=== PATIENT | male | born 1970 | race Caucasian/White ===

== ENCOUNTER 2021-11-29 15:27 | Inpatient (IN) | payer MEDICAID, MEDICARE ==
[~2021-11-29] VITALS: Ht 172.7 cm; Wt 68.0 kg
[2021-11-29] MEDS ORDERED: SODIUM CHLORIDE 0.9% 1,000 ML IV ONE (15:30)
[2021-11-29] MEDS: DEXT 5%/0.9% NACL 1,000 ML IV SCH ×3 (16:15→20:16)
[2021-11-29 17:41] LABS: BASOPHILS % 0.9 % (0.0-2.0); EOSINOPHILS % 0.4 % (0.0-5.0); HEMATOCRIT. 45.6 % (42.0-52.0); HEMOGLOBIN. 15.7 g/dL (14.0-18.0); LYMPHOCYTES % 10.9 % (20.0-50.0); MEAN CORPUSCULAR HEMOGLOBIN 32.5 pg (28.0-32.0); MEAN CORPUSCULAR VOLUME 94.4 fL (80.0-94.0); MEAN PLATELET VOLUME 9.5 fl (7.4-10.4); MONOCYTES % 8.7 % (2.0-8.0); NEUTROPHILS % 79.1 % (40.0-76.0); PLATELET 210 x1000/uL (130-400); RED BLOOD CELL COUNT 4.83 mill/uL (4.7-6.1); RED CELL DISTRIBUTION WIDTH 13.3 % (11.6-14.6)
[2021-11-29 17:48] LABS: CHLORIDE 104 mEq/L (98-107)
[2021-11-29 17:50] LABS: PARTIAL THROMBOPLASTIN TIME 29.6 sec (23.4-31.0); PROTHROMBIN TIME 10.6 sec (9.6-11.0)
[2021-11-29 17:58] LABS: LDL CHOLESTEROL 100 mg/dL (5-100)
[2021-11-29 17:59] LABS: HDL CHOLESTEROL 53 mg/dL (40-59)
[2021-11-29 18:08] LABS: AMYLASE 37 IU/L (25-115)
[2021-11-29] MEDS ORDERED: ACETAMINOPHEN 325MG TABLET PO PRN (19:15)
[2021-11-29] MEDS ORDERED: IPRATROPIUM/ALBUTEROL 0.5-3(2.5)MG/3ML NEB NEB PRN (19:15)
[2021-11-29] MEDS ORDERED: HYDROCODONE/ACETAMINOPHEN 5/325MG TABLET PO PRN (19:15)
[2021-11-29] MEDS ORDERED: DIPHENHYDRAMINE 50MG/ML VIAL IV PRN (19:15)
[2021-11-29] MEDS ORDERED: NA PHOS,M-B/NA PHOS,DI-BA ENEMA 118ML PR PRN (19:15)
[2021-11-29] MEDS ORDERED: DOCUSATE SODIUM 100MG CAPSULE PO PRN (19:15)
[2021-11-29] MEDS ORDERED: MORPHINE SULFATE 2 MG/ML CPJ (NOT FOR IM USE) IV PRN ×2 (19:15→19:30)
[2021-11-29] MEDS ORDERED: CLONIDINE 0.1MG TABLET PO PRN (19:15)
[2021-11-29] MEDS ORDERED: MAGNESIUM/ALUMINUM HYDROXIDE/SIMETHICONE 30ML UDC PO PRN (19:15)
[2021-11-29] MEDS ORDERED: ACETAMINOPHEN 650MG SUPP PR PRN (19:15)
[2021-11-29] MEDS ORDERED: GUAIFENESIN 200MG/10ML SUGAR FREE UDC PO PRN (19:15)
[2021-11-29] MEDS ORDERED: ONDANSETRON HCL 4MG/2ML INJ IV PRN (19:15)
[2021-11-29] MEDS ORDERED: PIPERACILLIN/TAZOBACTAM 3.375 G in DEXTROSE 5% WATER 50 ML IV SCH (19:15)
[2021-11-29] MEDS ORDERED: LORAZEPAM 2MG/ML CPJ IV PRN (19:30)
[2021-11-29] MEDS: FAMOTIDINE 20MG/2ML VIAL IV SCH (20:06)
[2021-11-29] MEDS: PIPERACILLIN/TAZOBACTAM 3.375G in DEXT 5% WATER 50ML IV SCH (20:07)
[2021-11-30] MEDS: MORPHINE SULFATE 4 MG/ML CPJ (NOT FOR IM USE) IV PRN ×2 (01:26→06:45)
[2021-11-30 02:01] LABS: CLARITY URINE CLEAR (CLEAR); COLOR URINE DK YELLOW (YELLOW); KETONES URINE NEGATIVE (NEGATIVE); LEUKOCYTE ESTERASE URINE NEGATIVE (NEGATIVE); NITRITE URINE NEGATIVE (NEGATIVE); OCCULT BLOOD URINE NEGATIVE (NEGATIVE); PH URINE 5.5 (4.5-8.0); PROTEIN URINE NEGATIVE (NEGATIVE); SPECIFIC GRAVITY URINE 1.024 (1.005-1.030); UROBILINOGEN URINE 0.2 E.U./dL (0.2-1.0)
[2021-11-30 02:10] LABS: *AMPHETAMINES SCREEN URINE NEGATIVE (NEGATIVE); *BARBITURATES SCREEN URINE NEGATIVE (NEGATIVE); *BENZODIAZEPINES SCREEN URINE PRESUMTIVE POSITIVE (NEGATIVE); *COCAINE SCREEN URINE NEGATIVE (NEGATIVE); METHADONE URINE SCREEN NEGATIVE (NEGATIVE); OPIATES URINE SCREEN PRESUMTIVE POSITIVE (NEGATIVE)
[2021-11-30 02:12] LABS: CANNABINOID URINE SCREEN NEGATIVE (NEGATIVE); PHENCYCLIDINE URINE SCREEN NEGATIVE (NEGATIVE)
[2021-11-30 04:16] LABS: BASOPHILS % 1.3 % (0.0-2.0); EOSINOPHILS % 0.8 % (0.0-5.0); HEMATOCRIT. 40.3 % (42.0-52.0); HEMOGLOBIN. 13.9 g/dL (14.0-18.0); LYMPHOCYTES % 23.2 % (20.0-50.0); MEAN CORPUSCULAR HEMOGLOBIN 33.3 pg (28.0-32.0); MEAN CORPUSCULAR VOLUME 96.4 fL (80.0-94.0); MEAN PLATELET VOLUME 9.3 fl (7.4-10.4); MONOCYTES % 10.9 % (2.0-8.0); NEUTROPHILS % 63.8 % (40.0-76.0); PLATELET 148 x1000/uL (130-400); RED BLOOD CELL COUNT 4.18 mill/uL (4.7-6.1); RED CELL DISTRIBUTION WIDTH 13.4 % (11.6-14.6)
[2021-11-30 04:29] LABS: CHLORIDE 106 mEq/L (98-107)
[2021-11-30] MEDS: DEXT 5%/0.9% NACL 1,000 ML IV SCH ×3 (05:15→15:21)
[2021-11-30] MEDS: PIPERACILLIN/TAZOBACTAM 3.375G in DEXT 5% WATER 50ML IV SCH (06:43)
[2021-11-30] MEDS ORDERED: BARIUM SULFATE(VOLUMEN) 450 ML ORAL.SUSP ONE (08:54)
[2021-11-30 10:27] VITALS: BP 127/85
[2021-11-30] MEDS ORDERED: NALOXONE HCL 0.4MG/ML VIAL IV PRN (10:30)
[2021-11-30] MEDS ORDERED: DULO20CA18 PO (10:47)
[2021-11-30] MEDS ORDERED: TRAZ-252 PO (10:47)
[2021-11-30] MEDS ORDERED: CELE200C PO (10:47)
[2021-11-30] MEDS ORDERED: POTASSIUM CHLORIDE INJ 40 MEQ in DEXT 5% WATER 250 ML IV ONE (11:30)
[2021-11-30] MEDS: MORPHINE SULFATE 2 MG/ML CPJ (NOT FOR IM USE) IV PRN ×3 (11:51→21:02)
[2021-11-30 12:22] VITALS: BP 120/75
[2021-11-30] MEDS: KCL 20MEQ/100ML X 2 FOR TOTAL KCL 40MEQ/200ML IV SCH ×2 (13:15→15:00)
[2021-11-30] MEDS ORDERED: IOHEXOL-350 100 ML BOTTLE ONE (13:41)
[2021-11-30] MEDS ORDERED: PIPERACILLIN/TAZOBACTAM 3.375G in DEXT 5% WATER 50ML IV SCH (14:00)
[2021-11-30 16:00] VITALS: BP 117/59
[2021-11-30 20:00] VITALS: BP 132/87
[2021-11-30] MEDS: VANCOMYCIN 1000MG/20ML ORAL SOLN PO SCH (20:05)
[2021-11-30] MEDS: TRAZODONE HCL 50MG TABLET PO SCH (21:01)
[2021-11-30] MEDS: FAMOTIDINE 20MG/2ML VIAL IV SCH (21:01)
[2021-11-30] MEDS: CHOLESTYRAMINE/SUCROSE 4G POWDER PACKET PO SCH (22:19)
[2021-12-01] VITALS: BP 140/88
[2021-12-01] MEDS: VANCOMYCIN 1000MG/20ML ORAL SOLN PO SCH ×4 (00:22→20:20)
[2021-12-01] MEDS: MORPHINE SULFATE 2 MG/ML CPJ (NOT FOR IM USE) IV PRN ×5 (01:47→22:20)
[2021-12-01 04:00] VITALS: BP 135/89
[2021-12-01] MEDS: DEXT 5%/0.9% NACL 1,000 ML IV SCH ×2 (06:11→12:46)
[2021-12-01 08:00] VITALS: BP 119/85
[2021-12-01 08:10] LABS: IMMUNOGLOBULIN A 183 mg/dL (90-386); IMMUNOGLOBULIN G 848 mg/dL (603-1613)
[2021-12-01 08:39] LABS: HEMATOCRIT. 36.8 % (42.0-52.0); HEMOGLOBIN. 12.9 g/dL (14.0-18.0); MEAN CORPUSCULAR HEMOGLOBIN 33.4 pg (28.0-32.0); MEAN CORPUSCULAR VOLUME 95.6 fL (80.0-94.0); MEAN PLATELET VOLUME 9.3 fl (7.4-10.4); PLATELET 147 x1000/uL (130-400); RED BLOOD CELL COUNT 3.85 mill/uL (4.7-6.1); RED CELL DISTRIBUTION WIDTH 13.6 % (11.6-14.6)
[2021-12-01 08:56] LABS: CHLORIDE 109 mEq/L (98-107)
[2021-12-01] MEDS: CHOLESTYRAMINE/SUCROSE 4G POWDER PACKET PO SCH (09:01)
[2021-12-01] MEDS: FAMOTIDINE 20MG/2ML VIAL IV SCH ×2 (09:01→22:19)
[2021-12-01 12:00] VITALS: BP 130/85
[2021-12-01] MEDS ORDERED: VANC250C12 MT (15:18)
[2021-12-01] MEDS ORDERED: FAMO-135 PO (15:18)
[2021-12-01 16:00] VITALS: BP 137/86
[2021-12-01] MEDS: DEXT 5%/0.9% NACL KCL 20MEQ/L 1,000 ML IV SCH ×2 (16:23→22:20)
[2021-12-01 19:47] LABS: PLATELET ESTIMATE NORMAL
[2021-12-01 20:00] VITALS: BP 141/86
[2021-12-01] MEDS: TRAZODONE HCL 50MG TABLET PO SCH (22:19)
[2021-12-02] VITALS: BP 132/79
[2021-12-02] MEDS: MORPHINE SULFATE 2 MG/ML CPJ (NOT FOR IM USE) IV PRN ×4 (03:52→20:43)
[2021-12-02 04:00] VITALS: BP 147/84
[2021-12-02] MEDS: VANCOMYCIN 1000MG/20ML ORAL SOLN PO SCH ×4 (06:05→18:31)
[2021-12-02] MEDS: DEXT 5%/0.9% NACL KCL 20MEQ/L 1,000 ML IV SCH ×3 (06:05→18:31)
[2021-12-02 07:06] LABS: HEMATOCRIT. 38.4 % (42.0-52.0); HEMOGLOBIN. 12.9 g/dL (14.0-18.0); MEAN CORPUSCULAR HEMOGLOBIN 32.5 pg (28.0-32.0); MEAN CORPUSCULAR VOLUME 96.6 fL (80.0-94.0); MEAN PLATELET VOLUME 9.3 fl (7.4-10.4); PLATELET 174 x1000/uL (130-400); RED BLOOD CELL COUNT 3.98 mill/uL (4.7-6.1); RED CELL DISTRIBUTION WIDTH 13.5 % (11.6-14.6)
[2021-12-02 07:16] LABS: CHLORIDE 111 mEq/L (98-107)
[2021-12-02 08:00] VITALS: BP 137/91
[2021-12-02] MEDS: TRAZODONE HCL 50MG TABLET PO SCH (08:44)
[2021-12-02] MEDS: FAMOTIDINE 20MG/2ML VIAL IV SCH ×2 (08:44→20:43)
[2021-12-02 09:12] LABS: PLATELET ESTIMATE NORMAL
[2021-12-02 12:00] VITALS: BP 118/91
[2021-12-02 16:00] VITALS: BP 120/91
[2021-12-02 20:00] VITALS: BP 159/98
[2021-12-02] MEDS: LORAZEPAM 0.5MG TABLET PO PRN (20:43)
[2021-12-02] MEDS: CELECOXIB 100MG CAPSULE PO SCH (20:45)
[2021-12-03] VITALS: BP 128/89
[2021-12-03] MEDS: LORAZEPAM 0.5MG TABLET PO PRN ×2 (00:46→04:57)
[2021-12-03] MEDS: MORPHINE SULFATE 2 MG/ML CPJ (NOT FOR IM USE) IV PRN ×3 (00:46→21:19)
[2021-12-03] MEDS: VANCOMYCIN 1000MG/20ML ORAL SOLN PO SCH ×4 (00:47→17:48)
[2021-12-03] MEDS: DEXT 5%/0.9% NACL KCL 20MEQ/L 1,000 ML IV SCH ×4 (00:47→20:55)
[2021-12-03 04:00] VITALS: BP 137/87
[2021-12-03 08:00] VITALS: BP 133/88
[2021-12-03 08:55] LABS: HEMATOCRIT. 36.4 % (42.0-52.0); HEMOGLOBIN. 12.4 g/dL (14.0-18.0); MEAN CORPUSCULAR HEMOGLOBIN 32.6 pg (28.0-32.0); MEAN CORPUSCULAR VOLUME 95.4 fL (80.0-94.0); MEAN PLATELET VOLUME 9.2 fl (7.4-10.4); PLATELET 178 x1000/uL (130-400); RED BLOOD CELL COUNT 3.81 mill/uL (4.7-6.1); RED CELL DISTRIBUTION WIDTH 13.3 % (11.6-14.6)
[2021-12-03 09:26] LABS: CHLORIDE 113 mEq/L (98-107)
[2021-12-03] MEDS: FAMOTIDINE 20MG/2ML VIAL IV SCH (10:17)
[2021-12-03] MEDS: CELECOXIB 100MG CAPSULE PO SCH ×2 (10:17→17:48)
[2021-12-03 10:51] LABS: PLATELET ESTIMATE NORMAL
[2021-12-03 12:00] VITALS: BP 138/80
[2021-12-03 13:06] LABS: ANTI-MYELOPEROXIDASE AB < 9.0 U/mL (0.0-9.0); ANTI-PROTEINASE 3 ABS < 3.5 U/mL (0.0-3.5)
[2021-12-03] MEDS: DULOXETINE HCL 20MG DR CAPSULE PO SCH (14:30)
[2021-12-03 16:00] VITALS: BP 130/75
[2021-12-03] MEDS ORDERED: BISACODYL 5MG TABLET PO NR ×2 (16:30→20:30)
[2021-12-03] MEDS ORDERED: METOCLOPRAMIDE HCL 10MG/2ML VIAL IV NR ×2 (16:30→20:30)
[2021-12-03] MEDS ORDERED: SORBITOL 70% SOLN 30ML PO NR ×2 (17:00→21:00)
[2021-12-03 20:00] VITALS: BP 137/86
[2021-12-03] MEDS: FAMOTIDINE 20MG TABLET PO SCH (21:03)
[2021-12-03] MEDS: TRAZODONE HCL 50MG TABLET PO SCH (21:06)
[2021-12-04] VITALS: BP 145/87
[2021-12-04] MEDS: VANCOMYCIN 1000MG/20ML ORAL SOLN PO SCH ×4 (00:46→18:00)
[2021-12-04 04:00] VITALS: BP 105/79
[2021-12-04] MEDS: DEXT 5%/0.9% NACL KCL 20MEQ/L 1,000 ML IV SCH ×2 (07:00→21:28)
[2021-12-04 07:19] LABS: BASOPHILS % 1.2 % (0.0-2.0); EOSINOPHILS % 1.6 % (0.0-5.0); HEMATOCRIT. 38.9 % (42.0-52.0); HEMOGLOBIN. 13.9 g/dL (14.0-18.0); LYMPHOCYTES % 35.1 % (20.0-50.0); MEAN CORPUSCULAR HEMOGLOBIN 33.7 pg (28.0-32.0); MEAN CORPUSCULAR VOLUME 94.3 fL (80.0-94.0); MONOCYTES % 14.8 % (2.0-8.0); NEUTROPHILS % 47.3 % (40.0-76.0); PLATELET 204 x1000/uL (130-400); RED BLOOD CELL COUNT 4.13 mill/uL (4.7-6.1); RED CELL DISTRIBUTION WIDTH 13.2 % (11.6-14.6)
[2021-12-04 07:23] LABS: PROTHROMBIN TIME 10.9 sec (9.6-11.0)
[2021-12-04 07:58] LABS: CHLORIDE 115 mEq/L (98-107)
[2021-12-04 08:00] VITALS: BP 132/88
[2021-12-04] MEDS: FAMOTIDINE 20MG TABLET PO SCH ×2 (08:59→09:28)
[2021-12-04] MEDS: DULOXETINE HCL 20MG DR CAPSULE PO SCH ×2 (08:59→09:28)
[2021-12-04] MEDS: CELECOXIB 100MG CAPSULE PO SCH ×2 (08:59→09:28)
[2021-12-04] MEDS: MORPHINE SULFATE 2 MG/ML CPJ (NOT FOR IM USE) IV PRN ×2 (09:30→23:37)
[2021-12-04 12:00] VITALS: BP 146/93
[2021-12-04 13:07] LABS: SACCHAROMYCES CEREVISIAE IGM <20.0 Units (0.0-24.9)
[2021-12-04 16:00] VITALS: BP 117/82
[2021-12-04] MEDS ORDERED: MIDAZOLAM HCL 5 MG/5 ML VIAL IV PRN (18:18)
[2021-12-04] MEDS ORDERED: FENTANYL CITRATE/PF 50MCG/ML 2ML VIAL IV PRN (18:19)
[2021-12-04] MEDS ORDERED: DIPHENHYDRAMINE 50MG/ML VIAL IV PRN (18:24)
[2021-12-04] MEDS ORDERED: FENTANYL CITRATE/PF 50MCG/ML 2ML VIAL ONE (18:26)
[2021-12-04] MEDS ORDERED: MIDAZOLAM HCL 5 MG/5 ML VIAL ONE (18:26)
[2021-12-04] MEDS ORDERED: DIAZEPAM 5 MG/ML 2ML CPJ ONE (18:27)
[2021-12-04] MEDS ORDERED: DIPHENHYDRAMINE 50MG/ML VIAL ONE ×2 (18:34→19:03)
[2021-12-04 19:07] LABS: OVA & PARASITE EXAM Final report (.)
[2021-12-04 20:59] VITALS: BP 106/72
[2021-12-04] MEDS: TRAZODONE HCL 50MG TABLET PO SCH (21:28)
[2021-12-05] VITALS: BP 118/73
[2021-12-05 04:00] VITALS: BP 103/59
[2021-12-05] MEDS: DEXT 5%/0.9% NACL KCL 20MEQ/L 1,000 ML IV SCH ×2 (05:12→17:20)
[2021-12-05] MEDS ORDERED: MORPHINE SULFATE 2 MG/ML CPJ (NOT FOR IM USE) IV PRN ×2 (05:15→12:30)
[2021-12-05 07:33] LABS: BASOPHILS % 1.2 % (0.0-2.0); EOSINOPHILS % 2.1 % (0.0-5.0); HEMATOCRIT. 38.2 % (42.0-52.0); HEMOGLOBIN. 13.4 g/dL (14.0-18.0); LYMPHOCYTES % 30.4 % (20.0-50.0); MEAN CORPUSCULAR HEMOGLOBIN 33.1 pg (28.0-32.0); MEAN CORPUSCULAR VOLUME 93.9 fL (80.0-94.0); MONOCYTES % 11.9 % (2.0-8.0); NEUTROPHILS % 54.4 % (40.0-76.0); PLATELET 204 x1000/uL (130-400); RED BLOOD CELL COUNT 4.06 mill/uL (4.7-6.1); RED CELL DISTRIBUTION WIDTH 13.3 % (11.6-14.6)
[2021-12-05 08:00] VITALS: BP 129/83
[2021-12-05 08:24] LABS: CHLORIDE 112 mEq/L (98-107)
[2021-12-05] MEDS: CELECOXIB 100MG CAPSULE PO SCH ×2 (08:46→17:20)
[2021-12-05] MEDS: FAMOTIDINE 20MG TABLET PO SCH ×2 (08:46→20:27)
[2021-12-05 09:07] LABS: SACCHAROMYCES CEREVISIAE IGG 21.9 Units (0.0-24.9)
[2021-12-05 12:00] VITALS: BP 114/70
[2021-12-05] MEDS ORDERED: METHYLPREDNISOLONE SOD SUCC 40 MG/ML VIAL IV SCH (12:00)
[2021-12-05] MEDS: MESALAMINE 400 MG CAPSULE.DR PO SCH ×2 (12:50→17:20)
[2021-12-05 13:11] LABS: ATYPICAL pANCA <1:20 titer (Neg:<1:20)
[2021-12-05 13:11] LABS: ATYPICAL P-ANCA <1:20 titer (Neg:<1:20); CYTOPLASMIC C-ANCA <1:20 titer (Neg:<1:20); PERINUCLEAR P-ANCA <1:20 titer (Neg:<1:20)
[2021-12-05] MEDS: METHYLPREDNISOLONE SOD SUCC 125 MG/2 ML VIAL IV SCH (15:30)
[2021-12-05 16:00] VITALS: BP 123/85
[2021-12-05] MEDS ORDERED: VANCOMYCIN HCL 1 GM/VIAL PO SCH (18:00)
[2021-12-05] MEDS ORDERED: VANCOMYCIN 1000MG/20ML ORAL SOLN PO SCH (18:00)
[2021-12-05] MEDS: MORPHINE SULFATE 2 MG/ML CPJ (NOT FOR IM USE) IV PRN ×2 (18:10→23:15)
[2021-12-05 20:00] VITALS: BP 121/74
[2021-12-05] MEDS: TRAZODONE HCL 50MG TABLET PO SCH (20:27)
[2021-12-06] VITALS: BP 120/90
[2021-12-06] MEDS: DEXT 5%/0.9% NACL KCL 20MEQ/L 1,000 ML IV SCH ×2 (03:06→11:50)
[2021-12-06] MEDS: MORPHINE SULFATE 2 MG/ML CPJ (NOT FOR IM USE) IV PRN ×2 (03:58→08:18)
[2021-12-06 04:00] VITALS: BP 128/87
[2021-12-06 05:21] LABS: BASOPHILS % 1.5 % (0.0-2.0); EOSINOPHILS % 4.1 % (0.0-5.0); HEMATOCRIT. 38.7 % (42.0-52.0); HEMOGLOBIN. 13.7 g/dL (14.0-18.0); LYMPHOCYTES % 36.6 % (20.0-50.0); MEAN CORPUSCULAR HEMOGLOBIN 33.2 pg (28.0-32.0); MEAN CORPUSCULAR VOLUME 93.9 fL (80.0-94.0); MONOCYTES % 12.3 % (2.0-8.0); NEUTROPHILS % 45.5 % (40.0-76.0); PLATELET 202 x1000/uL (130-400); RED BLOOD CELL COUNT 4.12 mill/uL (4.7-6.1); RED CELL DISTRIBUTION WIDTH 13.1 % (11.6-14.6)
[2021-12-06 05:58] LABS: CHLORIDE 111 mEq/L (98-107)
[2021-12-06] MEDS ORDERED: PREDNISONE 20MG TABLET PO SCH (07:40)
[2021-12-06 08:00] VITALS: BP 144/89
[2021-12-06] MEDS: METHYLPREDNISOLONE SOD SUCC 125 MG/2 ML VIAL IV SCH (08:06)
[2021-12-06] MEDS: FAMOTIDINE 20MG TABLET PO SCH (08:07)
[2021-12-06] MEDS: MESALAMINE 400 MG CAPSULE.DR PO SCH ×2 (08:07→11:50)
[2021-12-06] MEDS: CELECOXIB 100MG CAPSULE PO SCH (08:08)
[2021-12-06] MEDS: DULOXETINE HCL 20MG DR CAPSULE PO SCH (08:08)
[2021-12-06] MEDS ORDERED: P50 PO (11:14)
[2021-12-06] MEDS ORDERED: FAMO-135 PO (11:14)
[2021-12-06] MEDS ORDERED: MESA800T MT (11:14)
[2021-12-06] MEDS ORDERED: VANC250C12 MT (11:16)
[2021-12-06 12:00] VITALS: BP 130/65
[2021-12-06] MEDS ORDERED: T3 PO (12:23)
[2021-12-06 15:05] VITALS: BP 130/68
[2021-12-06] MEDS ORDERED: VANCOMYCIN 1000MG/20ML ORAL SOLN PO SCH (20:00)
[2021-12-07] MEDS ORDERED: PREDNISONE 20MG TABLET PO SCH (07:40)
== END 2021-12-06 16:50 | disposition home or self-care (01) | DRG 245 ==
LOC: ER 15:27 → MICUSO 16:51 → SUPCPDRO 19:14 → EDBEDREQTM 11-30 00:13 → EDBEDREQSVC 11-30 00:13 → 7EST 11-30 10:10 → 8WST 12-03 16:23
PROVIDERS: ADMIT Internal Medicine; ATTEND Internal Medicine
PROC: 0DB68ZX Excision of Stomach, Via Natural or Artificial Opening Endoscopic, Diagnostic (ICD-10-PCS; principal; 2021-12-04)
PROC: 0DBK8ZX Excision of Ascending Colon, Via Natural or Artificial Opening Endoscopic, Diagnostic (ICD-10-PCS; 2021-12-04)
PROC: 0DBL8ZX Excision of Transverse Colon, Via Natural or Artificial Opening Endoscopic, Diagnostic (ICD-10-PCS; 2021-12-04)
PROC: 0DBN8ZX Excision of Sigmoid Colon, Via Natural or Artificial Opening Endoscopic, Diagnostic (ICD-10-PCS; 2021-12-04)
DX: K51.90 Ulcerative colitis, unspecified, without complications (principal); U07.1 COVID-19; A04.71 Enterocolitis due to Clostridium difficile, recurrent; E86.0 Dehydration; J98.11 Atelectasis; E87.6 Hypokalemia; M45.9 Ankylosing spondylitis of unspecified sites in spine; Z96.649 Presence of unspecified artificial hip joint; Z78.9 Other specified health status; K29.70 Gastritis, unspecified, without bleeding; K63.5 Polyp of colon; R00.0 Tachycardia, unspecified; R74.01 Elevation of levels of liver transaminase levels; R74.8 Abnormal levels of other serum enzymes
CPT/HCPCS: 36415; 71045; 74176; 74177; 76700; 80048; 80053; 80061; 80305; 81003; 82150; 82705; 82784; 82977; 83036; 83520; 83615; 84436; 84443; 85025; 85651; 86140; 86256; 86671; 87015; 87045; 87177; 87209; 87426; 87427; 87449; 87493; 88305; 89055; 93005; 93306; 93970; 99152; 99285; J1200; J2060; J2250; J2270; J2543; J2765; J2920; J2930; J3010; J3370; J3480; J3490; J7030; J7042; J7060; Q9967; G0500